=== PATIENT | female | born 1945 | race Caucasian/White ===

== ENCOUNTER → 2017-01-19 | Outpatient (CLI) | payer MEDICARE, OTHER ==
[~2017-01-19] MED LIST: AMBIEN10 MG PO; ASPIR 8181 MG PO; COLACE100 MG PO; PERCOCET 5-3251 EACH PO; PRINIVIL (ZESTR20 MG PO
== END | disposition disaster alternative care site (69) ==
LOC: GRAD 16:55
DX: R51 Headache (principal)

== ENCOUNTER 2017-02-03 21:55 | Observation (INO) | payer MEDICARE, OTHER ==
[~2017-02-03] VITALS: Ht 172.7 cm; Wt 81.0 kg
--- NOTE | ~2017-02-03 | DS ---
PATIENT'S NAME: LORENA ZHOU [facility] AGE: 72 Y [address] ROOM: [place] [address] LOCATION: GPCU ADMIT DATE: 02/04/2017 Discharge Summary DISCHARGE DATE: 02/06/2017 FAMILY PHYSICIAN: Maranda Sam ATTENDING PHYSICIAN: Eric Hess PRIMARY DIAGNOSES: 1. C7 fracture after a mechanical fall. 2. Diabetes mellitus, type 2. 3. Gait instability. 4. Asthma, mild, intermittent. 5. Dyspepsia. 6. Essential hypertension. OPERATIONS AND PROCEDURES: None. HISTORY OF PRESENTING ILLNESS AND REASON FOR ADMISSION: Please refer to the H and P dictated on 02/04/2017. HOSPITAL COURSE: The patient was admitted to the hospital as noted above after a fall which occurred at home. She was seen and evaluated in the emergency room. Imaging studies demonstrated a C7 fracture. Neurosurgery had been consulted. Eventually, she was seen by Dr. Cantor. She was immobilized with a [place] collar. Dr. Cantor recommended to continue immobilization. She also received some physical therapy, occupational therapy, and restorative care. Blood sugars were managed with sliding scale insulin while she was here. Dr. Cantor recommended clinical followup on an outpatient basis to discuss the possibility of scheduling surgery. The patient was agreeable. By the end of the third day of her hospital stay, it was felt she would be stable enough for discharge to home with plans for close clinical followup with Dr. Cantor as well as her primary care provider. DISCHARGE INSTRUCTIONS: DIET: ADA, 1800 calories per day as tolerated. ACTIVITY: As tolerated. Light activity only. Avoid car travel. MEDICATIONS: 1. Percocet 5/325 one tablet p.o. q.4 hours p.r.n. pain. 2. Lisinopril 20 mg p.o. daily. 3. Aspirin 81 mg p.o. daily. PATIENT'S NAME: LORENA ZHOU [facility] AGE: 72 Y [address] ROOM: [place] [address] LOCATION: GPCU ADMIT DATE: 02/04/2017 Discharge Summary DISCHARGE DATE: 02/06/2017 FAMILY PHYSICIAN: Maranda Sam ATTENDING PHYSICIAN: Eric Hess 4. Colace 100 mg p.o. b.i.d. FOLLOWUP: She will follow up with Dr. Cantor in the clinic in 3 to 5 days. She will follow up with Maranda Sam APRN, in 3 to 5 days. CONDITION ON DISCHARGE: Good. Total time spent on discharge process is 35 minutes. IZZY J MD CHACE LICONA/stephen /[id number] d: 02/06/17 1154 t: 02/17/17 2144, DISCHARGE SUMMARY
--- NOTE | ~2017-02-03 | ER ---
PATIENT'S NAME: [facility] AGE: 72 Y [address] ROOM: [place] [id number] LOCATION: GPCU ADMIT DATE: 02/04/2017 ER/Outpatient Report DISCHARGE DATE: FAMILY PHYSICIAN: Maranda Sam ATTENDING PHYSICIAN: SAURABH SHELL Admission date and time documented in the medical record. I saw the patient at 2210 hours. CHIEF COMPLAINT: Fall. HISTORY OF PRESENT ILLNESS: This patient is a 72-year-old female who was going down some steps outside, missed the last step, fell forward hitting the left side of her head on a wooden fence. She came in with head pain, neck pain, and upper thoracic spine pain. She also had midsternal pain with some shortness of breath. She has generalized weakness secondary to the pain. This happened about 30 minutes prior to admission in the emergency room. The patient did not lose consciousness. She has kind of a generalized headache, but no eyes, ears, nose pain. No recent cough, cold, flus, fever, chills, or sweats. No anterior sternal pain with some shortness of breath. No abdominal pain, nausea, vomiting, diarrhea. No incontinence of stool or urine. No joint or muscle swelling, redness, or pain. No skin eruptions or rash. No abrasions, contusions, or lacerations. No endocrine problems, neuro changes, or psych issues. HOME MEDICATIONS: None. ALLERGIES: NONE. SOCIAL HISTORY: Nonsmoker. Occasional intake of alcohol. SIGNIFICANT PAST MEDICAL HISTORY: Hypertension. OPERATIONS: Neck surgery and bilateral shoulder surgery. REVIEW OF SYSTEMS: All systems reviewed by me are negative except for those discussed in the history of present illness. PATIENT'S NAME: [facility] AGE: 72 Y [address] ROOM: [address] [address] LOCATION: GPCU ADMIT DATE: 02/04/2017 ER/Outpatient Report DISCHARGE DATE: FAMILY PHYSICIAN: Maranda Sam ATTENDING PHYSICIAN: SAURABH SHELL PHYSICAL EXAMINATION: VITAL SIGNS: Temperature 98.7, tympanic; pulse 104; respirations 16; blood pressure 232/106; O2 saturation on room air is 96%. Allegra Coma Scale is 15. HEAD: Normocephalic. No abrasion, contusion, laceration, swelling of the scalp or face. EYES: Extraocular muscles are intact. PERRL. No hyphema, no subconjunctival hemorrhages. EARS: Clear TMs bilaterally. No fluid in the ear canals. NOSE: Clear. THROAT: Clear. Mucous membranes are moist. Teeth and jaw intact. NECK: The patient is in rigid cervical collar. SPINE: Some tenderness in the upper and mid thoracic spine, but no step-off or deformity. LUNGS: Clear. Good air flow. No rales, rhonchi, or wheezes. HEART: Regular. Pulses are palpable, tender over the sternum. No deformity. ABDOMEN: Soft, nondistended, nontender. Good bowel tones. No organomegaly or abnormal masses palpable. EXTREMITIES: Moves all 4 extremities. No peripheral edema, cyanosis, or deformity. NEUROVASCULAR: Intact. SKIN: Clear. IMAGING: CT scan of the head showed no intracranial bleed, midline shift, mass effect, or skull fracture. CT scan of the cervical spine showed acute fracture involving the C7 pedicle with bilateral extension to the right C7 superior articular facet associated with 2 mm C7-T1 spondylolisthesis. CT scan of the cervical spine showed no thoracic fracture or subluxation. CT scan of the lumbosacral spine showed moderate degenerative changes. No acute fracture or subluxation. CT scan of the chest with IV contrast showed some dependent atelectasis. Otherwise, no other abnormalities. Head CT scans showed no intracranial bleed, midline shift, mass effect, or skull fracture. All CT scans were read by Radiology. Right elbow plain film x-rays showed no fracture or dislocation. Pelvis and hip showed no acute fracture. We will review all plain films with the radiologist. I did go ahead and give the patient IV morphine for pain, IV Dilaudid for pain, Zofran for nausea and vomiting IV. I did discuss the patient with Dr. River, her neurosurgeon. He recommended a [place] collar and admission for pain control. IMPRESSION: 1. Fall with C7 bilateral pedicle fracture with extension to the right C7 superior articular facet. 2. Hypertension. PATIENT'S NAME: OLRENA ZHOU [facility] AGE: 72 Y [address] ROOM: [place] [address] [facility] ADMIT DATE: 02/04/2017 ER/Outpatient Report DISCHARGE DATE: FAMILY PHYSICIAN: Maranda Sam ATTENDING PHYSICIAN: SAURABH SHELL PLAN: I did discuss the patient with Dr. Shell, hospitalist. Dr. Shell is going to admit the patient to neuro trauma for pain control. He did place the patient in a [place] cervical collar. We will use pain control medications to control the pain. Dr. Shell wanted laboratory workup, CBC, CMS, PT, PTT, magnesium, phosphorus, results on these blood tests are pending. I did put an IV saline lock in the patient. Discussion ensued with the patient concerning my findings and recommendations, she understands. MD VIRA DUBOIS/modl /[id number] d: 02/04/17 0406 t: 02/10/17 0613, OUTPATIENT REPORT
--- NOTE | ~2017-02-03 | HP ---
PATIENT'S NAME: LORENA ZHOU [facility] AGE: 72 Y [address] ROOM: [id number] [place], [place] [address] [facility] ADMIT DATE: 02/04/2017 History & Physical DISCHARGE DATE: FAMILY PHYSICIAN: Maranda Sam ATTENDING PHYSICIAN: SAURABH SHELL DATE OF SERVICE: CHIEF COMPLAINT: Neck pain, status post mechanical fall. HISTORY OF PRESENT ILLNESS: This is a 72-year-old female who says that last night when she was trying to get in her [employer] hot tub she missed a step, tripped, accidentally fell, and hitting her head against the fence and fell to the ground. She felt this pain in the back of her neck; however, she was still able to get up and walk back into the house. However, the neck pain got worse and also she has some slight pain in her left hip and also some dyspnea from feeling anxious about the pain in her neck. Because the neck pain got worse with movement; therefore, the patient called her daughter and she was brought in here for evaluation. Prior to the fall, she denies any presyncope, chest pain, palpitation, shortness of breath, diaphoresis, nausea, vomiting, blurry vision, or any other symptoms. She states the fall is purely accidental. She did not lose consciousness after the fall. At baseline, the patient is a functional individual and her METs score is more than 4. She denies any chest pain or shortness of breath at rest or on exertion. She also does not have any known coronary artery disease or COPD. She does have asthma, but it is under very good control, she could not even remember her last attack. She denies any cigarette smoking, alcohol drinking, or illegal drug use. Also, no premature coronary artery disease in the family either. She does have hypertension and a recently diagnosed diabetes type 2. The patient had a cardiac catheterization performed in 2005. At that time, it was normal and the EF was 65%. She denies any leg edema or any other symptoms. REVIEW OF SYSTEMS: As mentioned in the history of present illness. All other systems reviewed and negative except those mentioned in history of present illness. PAST MEDICAL HISTORY: 1. Hypertension. 2. Diabetes type 2. 3. Asthma. 4. The patient denies any other past medical history. PATIENT'S NAME: GREEN, LORENA E [facility] AGE: 72 Y [address] ROOM: [address] [place], [place] [address] [facility] ADMIT DATE: 02/04/2017 History & Physical DISCHARGE DATE: FAMILY PHYSICIAN: Maranda Sam ATTENDING PHYSICIAN: SAURABH SHELL ALLERGIES: SULFA, WHICH CAUSES GI UPSET. SOCIAL HISTORY: She denies any alcohol, illegal drug use, or cigarette smoking. PAST SURGICAL HISTORY: 1. Status post right shoulder surgery in the past. 2. Status post hysterectomy in the past. 3. Status post right knee surgery in the past. FAMILY HISTORY: Father from advanced age from complications from pneumonia. Mother from old age and she had diabetes type 2 and history of stroke. No premature coronary artery disease in either parents. PHYSICAL EXAMINATION: VITAL SIGNS: At the time of my dictation, temperature 98, blood pressure 140/70, heart rate 80, respiration 14, and saturation 99% on room air. Pain 6/10 in the posterior neck area. GENERAL APPEARANCE: Alert and oriented x3, in no acute distress. HEENT: Pupils equally round and reactive to light. Extraocular muscles intact. Anicteric sclerae. Nasal turbinates are normal bilaterally. Moist oral mucosa. No oral thrush. NECK: She has a collar in place. CARDIOVASCULAR: Regular rate and rhythm. Normal S1, S2. No murmur, no rubs, no gallops. RESPIRATORY: Clear. Chest wall nontender to palpation. ABDOMEN: Soft, nontender, and nondistended, normal bowel sounds, no hepatosplenomegaly. EXTREMITIES: No edema in upper or lower extremity. NEUROLOGICAL: Grossly nonfocal except I did not examine the neck given that she has a collar and she has a fracture in C7 pedicles bilaterally. No facial droop. No slurred speech. Sensation and muscle strength are intact in all 4 extremities. Babinski negative. Mrbj-zt-bnhj intact. Bempjh-dt-gcbh intact. No tongue deviation upon protrusion. SKIN: No ulcer, no rash, no cyanosis. MUSCULOSKELETAL: Pain in the posterior neck area; otherwise, unremarkable. LABORATORY DATA: White blood cells 14.2, hemoglobin 13.1, hematocrit 40.6, MCV 84.6, and platelet 288. Glucose 182, BUN 22, creatinine 0.9, sodium 137, potassium 4.7, chloride 104, CO2 24, calcium 9.1, total protein 6.8, albumin 3.7, AST 23, ALT 29, alkaline phosphatase 99, total bilirubin 0.3, phosphorus 3.7, magnesium PATIENT'S NAME: LORENA ZHOU [facility] AGE: 72 Y [address] ROOM: [address] [place] [id number] [facility] ADMIT DATE: 02/04/2017 History & Physical DISCHARGE DATE: FAMILY PHYSICIAN: Maranda Sam ATTENDING PHYSICIAN: SAURABH SHELL 2.2, GFR more than 60, anion gap 13.7, INR 1.0, and PTT 25. Urinalysis not yet collected. IMAGING STUDIES: 1. X-ray of the left elbow and the left hip and the pelvis, official report is pending. Please follow up in the morning with official report. 2. CT of the cervical spine without contrast preliminary report on admission show acute fracture involving the C7 pedicles bilaterally with extension into the right C7 superior articular facet. Associated 2-mm C7-T1 spondylolisthesis. 3. CT thoracic spine without contrast on admission, preliminary report show C7 pedicle fracture and C7-T1 anterolisthesis. Scattered atelectasis dependently in the lungs. No thoracic fracture. 4. CT lumbar spine without contrast, preliminary report on admission showed moderate degenerative changes of the lumbar spine. No acute fracture. 5. CT of the chest without contrast on admission, preliminary report show scattered dependent atelectasis in the lungs. C7 fracture best seen on cervical spine CT. Widened acromioclavicular joints. Chronicity is uncertain and could be from a prior bilateral shoulder separation. 6. CT of the head without contrast on admission, preliminary report showed no acute findings. 7. EKG on admission shows sinus rhythm, heart rate of 88 beats per minute with a normal QTc, normal QRS, normal CO, and no acute ischemic findings. ASSESSMENT AND PLAN: 1. Regarding her acute fracture of the C7 pedicle bilaterally with extension into the right C7 superior articular facet associated with a 2-mm C7-T1 spondylolisthesis, status post mechanical fall: I will consult Neurosurgery in the morning. Currently, sensation and muscle strength in all 4 extremities are intact. The patient has a neck collar in place. The patient will be on bed rest and fall precaution. 2. Regarding her medical problems: If the patient requires surgery, the patient is medically cleared already. The patient does not have any active cardiac contraindication to undergo surgery if she ever requires surgery. Her METs score is more than 4, her EKG is normal, and blood work is unremarkable. The patient denies any chest pain or shortness of breath and was never a smoker, never a drinker, and does have asthma, but is under good control without exacerbation. According to the guidelines for preoperative medical clearance for noncardiac surgery, the patient does not have a contraindication at the moment to undergo surgery. 3. Regarding her hypertension: Continue home medication with the MARIANA inhibitor. Her kidney function is normal. 4. Regarding her asthma: Under good control. I will order albuterol p.r.n. 5. Regarding her diabetes, type 2: I will check hemoglobin A1c and also I will put her on the subcutaneous regular insulin q.6 h. low mild dose PATIENT'S NAME: LORENA ZHOU [facility] AGE: 72 Y [address] ROOM: [place] [address] [facility] ADMIT DATE: 02/04/2017 History & Physical DISCHARGE DATE: FAMILY PHYSICIAN: Maranda Sam ATTENDING PHYSICIAN: SAURABH SHELL while she is n.p.o. 6. Regarding the pain control for the fracture: Please follow up with the official report of the x-ray and also the CT scan in the morning given that the report at this moment they are preliminary. For pain control, the patient does not want to use morphine anymore given that it does not help her to relieve the pain and she also does not want to take anything p.o. right now due to the neck collar. I will give her intravenous Dilaudid 0.5 mg q.3 h. p.r.n. and hold if respiration rate less than 12 or drowsy or systolic blood pressure less than 100 and also give intravenous fentanyl 25 mcg also q.3 h. p.r.n. with same holding parameter as dilaudid prn. Further plan per Neurosurgery evaluation in the morning. 7. Deep vein thrombosis prophylaxis: I would use compression devices. I will defer pharmacological prophylaxis for now in case the patient will require surgery. Pending Neurosurgery evaluation in the morning. If the patient does not require surgery therefore the patient should get a heparin or Lovenox subcutaneous for pharmacological prophylaxis. 8. Code status: Full code. I will give her intravenous fluids as well with normal saline at 60 mL/hr for maintenance while she is n.p.o. 9. Further plan depends on clinical course. Time spent on the day of admission 40 minutes including chart review, interviewing the patient, examining the patient, and addressing all the questions and concerns that the patient and the patient's daughter had at the bedside. I also went over the plan of care with the patient, the patient's daughter, and the nurse in detail. MD DEISY OWENS/stephen /[id number] D: [id number] T: [id number] HISTORY & PHYSICAL
[2017-02-04 02:22] LABS: BASOPHIL # 0.1 K/uL (0.0-0.2); BASOPHIL % 0.4 %; EOSINOPHIL # 0.1 K/uL (0.0-0.5); EOSINOPHIL % 0.9 %; HEMATOCRIT 40.6 % (33.0-46.0); HEMOGLOBIN 13.1 g/dL (10.0-15.0); IMMATURE GRANULOCYTE # 0.1 K/uL (0.0-0.3); IMMATURE GRANULOCYTE % 0.4 %; LYMPHOCYTE % 7.3 %; MCH 27.3 pg (27.0-34.0); MCHC 32.3 gm/dL (32.0-36.5); MCV 84.6 fl (83.0-98.0); MONOCYTE # 0.8 K/uL (0.0-1.0); MONOCYTE % 5.8 %; MPV 9.3 fl (9.4-12.4); NEUTROPHIL # (ANC) 12.1 K/uL (1.8-7.8); NEUTROPHIL % 85.2 %; NRBC % 0 /100WBC (0-0.00); PLATELET COUNT 288 K/uL (150-450); RDW-CV 13.3 % (11.9-14.6); WBC 14.2 K/uL (4.0-11.0)
[2017-02-04] MEDS ORDERED: PRINIVIL (ZESTR20 MG PO (02:25)
[2017-02-04] MEDS ORDERED: AMBIEN10 MG PO (02:25)
[2017-02-04 02:34] LABS: PROTIME 10.6 SECONDS (9.6-11.1); PTT 25 SECONDS (25-32)
[2017-02-04 02:38] LABS: ALBUMIN 3.7 gm/dL (3.5-5.0); ALK PHOS 99 IU/L (33-138); ALT 29 IU/L (12-78); ANION GAP 13.7 (10.0-19.0); AST 23 IU/L (10-40); BLOOD UREA NITROGEN 22 mg/dL (6-24); CALCIUM 9.1 mg/dL (8.5-10.5); CHLORIDE 104 mMol/L (96-110); CO2 24 mMol/L (22-32); CREATININE 0.9 mg/dL (0.5-1.1); ESTIMATED GFR (MDRD EQUATION) > 60; MAGNESIUM 2.2 mg/dL (1.3-2.6); PHOSPHORUS 3.7 mg/dL (2.5-4.9); POTASSIUM 4.7 mMol/L (3.7-5.1); SODIUM 137 mMol/L (135-145); TOTAL BILIRUBIN 0.3 mg/dL (0.0-1.5); TOTAL PROTEIN 6.8 g/dL (6.0-8.4)
[2017-02-04] MEDS ORDERED: ASPIR 8181 MG PO (03:35)
--- NOTE | 2017-02-04 05:48 | NUR ---
Significant Event: VSS. RA SAT 87%, 1 L NC OXYGEN. PT FELL AT HOME, C7 FRACTURE IN KRESS J COLLAR AND BEDREST UNTIL NEUROSURGEON SEES. PT C/O PAIN 8/10 NECK,SHOULDERS, AND BACK. IV PAIN MEDS GIVEN, UNALBE TO SIT UP AND WALLOW TABS. FENTANYL AND DILAUDID GIVEN WITH SOME RELIEF. Follow up: CONT TO MONITOR
[2017-02-04 07:35] LABS: BILIRUBIN URINE NEGATIVE (NEGATIVE); BLOOD URINE NEGATIVE /UL (NEGATIVE); GLUCOSE URINE NEGATIVE (NEGATIVE); KETONE URINE NEGATIVE (NEGATIVE); LEUKOCYTES URINE 100 /UL (NEGATIVE); NITRITE URINE NEGATIVE (NEGATIVE); PROTEIN URINE NEGATIVE (NEGATIVE); SPEC GRAVITY URINE 1.025 (1.003-1.035); UROBILINOGEN URINE NORMAL (NORMAL)
[2017-02-04 07:45] LABS: COLOR URINE YELLOW (YELLOW); TURBIDITY URINE 1+ (CLEAR)
[2017-02-04 07:47] LABS: BACTERIA URINE RARE (NEGATIVE); EPITHELIAL URINE RARE #/HPF (NEGATIVE); MUCUS URINE 1+ (NEGATIVE); RBC URINE NEGATIVE #/HPF (NEGATIVE)
--- NOTE | 2017-02-04 14:46 | NUR ---
Stopped by to review Arron' chart and talk with her. She was sleeping when I stopped by so I will go back tomorrow and try to visit with her. In reviewing her chart, it appears she lives here in [place] alone, but has good family support. Per her RN Dorothy, her plan is to go home. It could be as soon as tomorrow. Will continue to follow and assist.
--- NOTE | 2017-02-04 17:01 | NUR ---
Significant Event: pt bedrest until dr Cantor came, then pt up to chair. [place] collar at all times, unless pt showers then florence jones in shower, then immediate back to [facility]. Fent last 1230, dilaudid 1405, perc. 1040. Pt daughter here with her. Pt eats small amt today. Headache has been biggest pain. Follow up:
--- NOTE | 2017-02-04 18:34 | NUR ---
d-dr rendon neck hard collar and florence collar i-[employer]ann[employer] brought pt collars and switched out to hard collar and brought florence collar for showering r-pt likes new collar p-keep on collar at all times
--- NOTE | 2017-02-05 04:38 | NUR ---
Pt a/o x4. sba x1. vss on RA, afebrile. ns at 60 to RAC. MJ collar to be on 07/06 or florence collar in shower. Last percocet at 0130ish. no dilaudid/fent given this shift. c/o stiffness Plan: ?d/c today. needs to f/u with neuro in 1 week.
--- NOTE | 2017-02-05 11:39 | NUR ---
1130 Introduced self and CM role to patient with family members at bedside. Plan to return back to home upon discharge. Pt states she has strong supports at home. No current needs or concerns at this time. Wrote SIVAN To's name on markerboard and told her to contact us if any concerns arise. CM Manager Reliability TH.
--- NOTE | 2017-02-05 19:30 | NUR ---
Significant Event: A/O X 3. [place] COLLAR ON AT ALL TIMES. SOME C/O NUMBNESS IN RT. HAND: 4& 5 DIGITS OF FINGERS. 99.1 TEMP TODAY. HR NSR IN 70'S. UP AD HARSHIL, GAIT SLOW STEADY. SATS 95% ON ROOM AIR. NO RESP. DISTRESS. NO PROBLEMS SWOLLOWING TODAY. PT/OT NOW WORKING WITH PATIENT AND HELPED HER TAKE A SHOWER WITH THE [place] COLLAR FOR SHOWER USE. TAKING PERCOCET FOR PAIN CONTROL. Follow up: CONT. TO MONITER POST CERVICAL SPINE FX.
--- NOTE | 2017-02-06 05:10 | NUR ---
Significant Event: PATIENT IS A/O X3. VSS. HR 70-80'S. SBP 120-160'S. AFEBRILE. 02 SATS IN MID 90'S ON RA. C/O PAIN TO CHEST AND SHOULDERS. 1 TAB NORCO GIVEN X3 WITH SOME RELIEF. LUNGS CLEAR/DIM TO DIM. [place] J COLLAR ON CONTINUOUSLY. APPITIE IMPROVING. VOIDS PER RESTROOM. AMBULATED IN HALLS X3. UP SBA TO INDEPENDENT. IV TO RIGHT AC SL. ON Q6H ACCUCHECKS. NEEDS ADDRESSED IN AM. Follow up: CONTINUE TO MONITOR. LIKELY HOME IN AM.
[2017-02-06] MEDS ORDERED: COLACE100 MG PO (12:39)
[2017-02-06] MEDS ORDERED: PERCOCET 5-3251 EACH PO (12:40)
--- NOTE | 2017-02-06 13:55 | NUR ---
DISM. NOTE: REVIEW OF HOME MEDS AND NEW MEDS WITH HANDOUTS AND SIDE EFFECTS DISCUSSED. PRESCRIPTION GIVEN. DIET/ ACTIVITY FOLLOW UP APPT. DIABETIC BOOKLET GIVEN AND GONE OVER. TALKED ABUT HBGAIC LEVEL. PATIENT VOICED UNDERSTANDING
== END 2017-02-06 13:36 | disposition disaster alternative care site (69) ==
LOC: GMED 21:55 → GPCU 02-04 01:36
PROVIDERS: Emergency Medicine; ADMIT Internal Medicine
DX: S12.650A Other traumatic displaced spondylolisthesis of seventh cervical vertebra, initial encounter for closed fracture (principal); E11.9 Type 2 diabetes mellitus without complications; J45.20 Mild intermittent asthma, uncomplicated; I10 Essential (primary) hypertension; R26.89 Other abnormalities of gait and mobility; R10.13 Epigastric pain; Z88.2 Allergy status to sulfonamides; Z88.8 Allergy status to other drugs, medicaments and biological substances; Z90.710 Acquired absence of both cervix and uterus; Z79.82 Long term (current) use of aspirin; Z79.899 Other long term (current) drug therapy; Z98.890 Other specified postprocedural states; W19.XXXA Unspecified fall, initial encounter; Y92.009 Unspecified place in unspecified non-institutional (private) residence as the place of occurrence of the external cause
CPT/HCPCS: G0378; G8978; G8979; G8980; J1170; J2270; J2405; J3010; J7030

== ENCOUNTER → 2017-07-06 | Outpatient (CLI) | payer MEDICARE, OTHER ==
--- NOTE | ~2017-07-06 | PUL ---
PATIENT'S NAME: LORENA ZHOU [facility] AGE: 72 Y [address] ROOM: [place] [address] LOCATION: [facility] ADMIT DATE: 07/06/2017 Pulmonary DISCHARGE DATE: FAMILY PHYSICIAN: Maranda Sam ATTENDING PHYSICIAN: DEVYN SWEET NAME OF PROCEDURE: Pulmonary Function Test with Methacholine Challenge DATE OF PROCEDURE: July 06, 2017 TECH: CHERRY Barrios REASON FOR EXAM: Chronic cough PROCEDURES PERFORMED: Spirometry with bronchodilator assessment. Measurement of maximum voluntary ventilation. Measurement of lung volumes. Measurement of diffusion capacity. RESULTS: Spirometry shows pre bronchodilator FVC was 3.59 liters, 109% of predicted; post bronchodilator FVC was 3.47 liters, 105% of predicted. Pre bronchodilator FEV1 was 2.84 liters, 114% of predicted; post-bronchodilator FEV1 was 2.81 liters, 113% of predicted. FEV1/FVC was 79, 105% of predicted. FDY28-56% was 2.92 liters/second, 148% of predicted. Peak flow was 6.41 L, 108% of predicted. Maximum voluntary ventilation was 66 liters/minute, 80% of predicted. This data did not change significantly following an inhaled bronchodilator. Lung volumes measured showed total lung capacity was 5.22 liters, 97% of predicted. Functional residual capacity was 2.91 liters, 98% of predicted. Residual volume was 1.64 liters, 74% of predicted. Diffusing capacity not adjusted for hemoglobin was 86% of predicted. The single breath alveolar volume was 4.56 liters which is a marginal estimate of the total lung capacity. The flow volume loop pattern was normal. PHYSICIAN INTERPRETATION: The above data and corresponding flow volume curves are most compatible with normal pulmonary function, with normal lung volumes, and no gas transfer impairment. MD SUHAIL ASENCIO/dilma PATIENT'S NAME: LORENA ZHOU [facility] AGE: 72 Y [address] ROOM: [place] [address] LOCATION: [facility] ADMIT DATE: 07/06/2017 Pulmonary DISCHARGE DATE: FAMILY PHYSICIAN: Maranda Sam ATTENDING PHYSICIAN: DEVYN SWEET /[id number] dtt: 07/15/17 1721 , DEVYN SWEET dtd: 07/12/17 1451
== END | disposition disaster alternative care site (69) ==
LOC: GRAD 07:39
DX: J45.909 Unspecified asthma, uncomplicated (principal); J98.4 Other disorders of lung; R05 Cough
CPT/HCPCS: J7674